=== PATIENT | male | born 1965 | race Caucasian/White ===

== ENCOUNTER 2022-06-14 19:14 | Emergency (ER) | payer SELFPAY ==
[2022-06-14 19:16] VITALS: BP 182/74; PULSE 85; RESP 19; TEMP 36.8; O2SAT 97; BMI 31.5
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
[2022-06-14 20:03] LABS: Chloride 105 mmol/L (98-107); Potassium 3.4 mmoL/L (3.5-5.1); Sodium 136 mmol/L (136-145)
[2022-06-14 20:05] LABS: Blood Urea Nitrogen 11 mg/dl (9-20); Creatinine Clearance Estimated 115 mL/min (50-200); Estimated Glomerular Filt Rate 77 ml/min (>60); GFR (African American) 93 ML/MIN (>60)
[2022-06-14 20:06] LABS: Alanine Aminotransferase 24 U/L (12-78); Albumin Level 4.1 g/dl (3.5-5.0); Albumin/Globulin Ratio 1.4 (1.1-1.8); Alkaline Phosphatase 95 U/L (38-126); Anion Gap 7.4 mEq/L (5-15); Aspartate Amino Transferase 36 U/L (17-59); Bilirubin,Total 0.5 mg/dl (0.2-1.3); Calcium 9.1 mg/dl (8.4-10.2); Carbon Dioxide 27 mmol/L (22.0-30.0); Glucose 98 mg/dl (74-100); Lipase 73 U/L (23-300); Total Protein,Serum 7.1 g/dl (6.3-8.2)
[2022-06-14 20:15] LABS: Basophils # 0.1 K/mm3 (0-0.2); Basophils % 1.1 % (0.1-2.0); Eosinophils # 0.2 K/mm3 (0.0-0.4); Eosinophils % 1.9 % (0.1-12.0); Hematocrit 43.8 % (42.0-52.0); Hemoglobin 14.8 g/dL (14.1-18.0); Lymphocytes # 2.7 K/mm3 (0.7-4.5); Mean Corpuscular HGB Conc 33.8 g/dL (31.8-35.4); Mean Corpuscular Hemoglobin 31.7 pg (27.0-31.2); Mean Corpuscular Volume 93.9 fl (80-94); Mean Platelet Volume 8.8 fl (7.4-10.4); Monocytes # 0.5 K/mm3 (0.1-1.0); Monocytes % 5.3 % (1.7-9.3); Neutrophils # 5.9 K/mm3 (1.8-7.8); Neutrophils % 62.8 % (37.0-80.0); Platelet Count 209 K/mm3 (142-424); Red Blood Count 4.67 M/mm3 (4.60-6.20); White Blood Count 9.4 K/mm3 (4.8-10.8)
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
[2022-06-14 20:35] LABS: Lactic Acid 0.7 mmol/L (0.7-2.1)
[2022-06-14 22:03] VITALS: BP 146/60; PULSE 75; RESP 19; TEMP 36.8; O2SAT 98
--- NOTE | 2022-06-14 22:06 | PC.NURSE ---
gave education on incentive spirometer
== END 2022-06-14 22:18 | disposition home or self-care (01) ==
PROVIDERS: Student in an Organized Health Care Education/Training Program; Emergency Provider Emergency Medicine
DX: S22.42XA Multiple fractures of ribs, left side, initial encounter for closed fracture (principal); M79.606 Pain in leg, unspecified; R04.0 Epistaxis; R50.9 Fever, unspecified; R11.10 Vomiting, unspecified; R05.9 Cough, unspecified; Z20.822 Contact with and (suspected) exposure to COVID-19; F17.200 Nicotine dependence, unspecified, uncomplicated; Z79.52 Long term (current) use of systemic steroids; V46.5XXA Car driver injured in collision with other nonmotor vehicle in traffic accident, initial encounter
CPT/HCPCS: 70450; 71045; 71275; 72125; 72170; 74175; 80053; 83605; 83690; 85025; 99285; Q9967

== ENCOUNTER 2023-12-12 18:00 | Outpatient (CLI) | payer SELFPAY ==
[2023-12-12 22:17] LABS: Amphetamine/Metha Screen,Urine Negative ng/ml (<1000); Barbiturates Screen,Urine Negative ng/ml (<200)
[2023-12-12 22:18] LABS: Benzodiazepines Screen,Urine Negative ng/ml (<200)
[2023-12-12 22:19] LABS: Cannabinoid Screen,Urine Negative ng/ml (<50); Cocaine Screen,Urine Negative ng/ml (<300)
[2023-12-12 22:20] LABS: Methadone Screen,Urine Negative ng/ml (<300); Opiate Screen,Urine Negative ng/ml (<300)
[2023-12-12 22:21] LABS: Phencyclidine Screen,Urine Negative ng/ml (<25)
== END 2023-12-12 23:59 | disposition home or self-care (01) ==
LOC: LAB.DROPOF 12-13 10:40
PROVIDERS: PCP Nurse Practitioner; Visit Provider Nurse Practitioner
DX: Z02.4 Encounter for examination for driving license (principal)
CPT/HCPCS: 80307

== ENCOUNTER 2025-01-03 15:50 | Outpatient (CLI) | payer SELFPAY ==
[2025-01-03 18:37] LABS: Basophils # 0.1 K/mm3 (0-0.2); Basophils % 0.8 % (0.1-2.0); Eosinophils # 0.1 Kmm3 (0.0-0.4); Eosinophils % 1.2 % (0.1-12.0); Hematocrit 49.3 % (42.0-52.0); Hemoglobin 16.6 g/dL (14.1-18.0); Immature Granulocytes # 0.01 10^3uL; Immature Granulocytes % 0.1 %; Lymphocytes % 25.5 % (10-50); Mean Corpuscular HGB Conc 33.7 g/dL (31.8-35.4); Mean Corpuscular Hemoglobin 30.5 pg (27.0-31.2); Mean Corpuscular Volume 90.6 fl (80-94); Mean Platelet Volume 10.5 fl (7.4-10.4); Monocytes # 0.6 K/mm3 (0.1-1.0); Monocytes % 7.7 % (1.7-9.3); Neutrophils % 64.7 % (37.0-80.0); Nucleated Red Blood Cells # 0 10^3/uL; Nucleated Red Blood Cells % 0 %; Platelet Count 184 K/mm3 (142-424); Red Blood Count 5.44 M/mm3 (4.60-6.20); Red Cell Distribution Width-SD 46.5 fL; White Blood Count 7.7 K/mm3 (4.8-10.8)
[2025-01-03 18:53] LABS: Albumin Level 4.6 g/dl (3.5-5.0); Chloride 103 mmol/L (98-107); Sodium 138 mmol/L (136-145)
[2025-01-03 18:56] LABS: Alanine Aminotransferase 23 U/L (12-78); Albumin/Globulin Ratio 1.5 (1.1-1.8); Alkaline Phosphatase 95 U/L (38-126); Aspartate Amino Transferase 28 U/L (17-59); Bilirubin,Total 0.9 mg/dl (0.2-1.3); Blood Urea Nitrogen 11 mg/dl (9-20); Calcium 9.3 mg/dl (8.4-10.2); Carbon Dioxide 24 mmol/L (22.0-30.0); Cholesterol 212 mg/dl (140-200); Estimated Glomerular Filt Rate 76 ml/min (>60); GFR (African American) 92 ML/MIN (>60); Globulin 3.1 g/dL (1.3-3.2); Glucose 101 mg/dl (74-100); Total Protein,Serum 7.7 g/dl (6.3-8.2); Triglycerides 226 mg/dl (30-150); VLDL Cholesterol 45 mg/dL (0-40)
[2025-01-03 18:57] LABS: Chol/HDL Ratio 6.2 (1-3.5); HDL Cholesterol 34 mg/dl (40-60)
[2025-01-03 19:13] LABS: T4 (Thyroxine) 8.5 ug/dl (5.53-11.0)
[2025-01-03 19:41] LABS: HIV Combo NEGATIVE (Negative)
[2025-01-03 19:48] LABS: Hepatitis C Ab Qual. W/ RFX NEGATIVE (Negative)
[2025-01-03 20:32] LABS: Prostate Specific Ag Screen 2.4 ng/ml (0.0-4.0)
--- OUTSIDE RECORDS SUMMARY | 2025-01-04 08:38 | XMS_ITS | Clinical Summary ---
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 Phone Unavailable Primary Care Provider Unavailabl e Allergies No known active allergies Medications No known medications Social History Tobacco Use Types Packs/Day Years Used Date Smoking Tobacco: Every Day Cigarettes Smokeless Tobacco: Never Alcohol Use Standard Drinks/Week Comments Yes 0 (1 standard drink = 0.6 oz pure alcohol) 2-3 nights per week 6-8 beers, more on weekends Sex and Gender Information Value Date Recorded Sex Assigned at Not on file Legal Sex Male 9:04 PM EDT Gender Identity Not on file Sexual Orientation Not on file Obstetrics History Last Filed Vital Signs Vital Sign Reading Time Taken Comments Blood Pressure 135/82 01/17/2022 10:18 PM EDT Pulse 103 01/17/2022 10:18 PM EDT Temperature 36.7 C (98.1 F) 01/17/2022 10:18 PM EDT Respiratory Rate 18 01/17/2022 10:18 PM EDT Oxygen Saturation 97% 01/17/2022 10:18 PM EDT Inhaled Oxygen Concentration - - Weight 100.7 kg (222 lb) 01/17/2022 10:18 PM EDT Height 175.3 cm (5' 9 ) 01/17/2022 10:18 PM EDT Body Mass Index 32.78 01/17/2022 10:18 PM EDT Plan of Treatment Health Maintenance Due Date Last Done Comments Annual Wellness Exam 1967 Hepatitis C Screening 1982 Pneumococcal Vaccine 50+ (1 of 2 - PCV) 1983 DTaP/TDaP/Td (1 - Tdap) 09/13/1996 09/12/1996 Cologuard 2009 Colon Cancer Screening 2009 Colonoscopy 2009 FIT 2009 Sigmoidoscopy 2009 Virtual Colonography 2009 Zoster (1 of 2) 2014 COVID-19 Vaccine ( - 2023-2 5 season) 2024 Influenza Vaccine (Season Ended) 2025 Hepatitis B Vaccine Aged Out No longe r eligible based on patient's age to complete this topic Meningococcal B Vaccine Aged Out No l onger eligible based on patient's age to complete this topic
--- OUTSIDE RECORDS SUMMARY | 2025-01-04 08:38 | XMS_ITS | Clinical Summary ---
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 Phone Unavailable Primary Care Provider Unavailabl e Social History Tobacco Use Types Packs/Day Years Used Date Smoking Tobacco: Never Assessed Sex and Gender Information Value Date Recorded Sex Assigned at Not on file Legal Sex Male 7:20 PM EDT Gender Identity Not on file Sexual Orientation Not on file Plan of Treatment Health Maintenance Due Date Last Done Comments Hepatitis C Screening 1964 DTap,Tdap,and Td (1 - Tdap) 1975 Colonoscopy 2009 PSA YEARLY 2014 Pneumococcal 50+ (1 of 1 - PCV) 2014 Shingrix (#1) 2014 Influenza Vaccine (Season Ended) 2025 RSV Vaccine (60+ or ) (1 - 1-dose 75+ series) 2039 HPV Aged Out No longer eligi ble based on patient's age to complete this topic Meningococcal conjugate rick nt 4 (MCV4) Aged Out No longer eligible b ased on patient's age to complete this topic RSV Immunization (<20 months) Aged Out No longer eligible based on patient's age to complete this topic
--- OUTSIDE RECORDS SUMMARY | 2025-01-04 08:38 | XMS_ITS | Referral Summary ---
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
[2025-01-05 10:22] LABS: Hepatitis B Surface Antigen Negative (Negative)
== END 2025-01-03 23:59 | disposition home or self-care (01) ==
LOC: LAB 01-04 08:36
PROVIDERS: PCP Nurse Practitioner Family; Visit Provider Nurse Practitioner Family
DX: Z11.59 Encounter for screening for other viral diseases (principal); Z76.89 Persons encountering health services in other specified circumstances
CPT/HCPCS: 80053; 80061; 84436; 84443; 85025; 86803; 87340; 87389; G0103